=== PATIENT | female | born 1975 | race Caucasian/White ===

== ENCOUNTER 2018-07-31 21:36 | Emergency (ER) | payer BC ==
[~2018-07-31] VITALS: Ht 157.5 cm; Wt 81.8 kg
[~2018-07-31 21:36] MED LIST: NAPR-58 PO; OXYC-530 PO
[2018-07-31] MEDS ORDERED: METH2.5T6 PO (21:46)
[2018-08-01 01:25] LABS: BASOPHILS % (AUTO) 0.3 % (0.0-2.0); EOSINOPHILS % (AUTO) 1.6 % (1.0-6.0); HEMOGLOBIN 12.1 g/dL (12.0-16.0); LYMPHOCYTES # (AUTO) 1.5 K/uL (1.0-4.8); LYMPHOCYTES % (AUTO) 18.2 % (22.0-44.0); MEAN CORPUSCULAR HEMOGLOBIN 27.8 pg (26.0-34.0); MEAN CORPUSCULAR HGB CONC 33.7 G/dL (31.0-37.0); MEAN CORPUSCULAR VOLUME 83 fL (80-100); MONOCYTES # (AUTO) 0.5 K/uL (0.1-1.0); MONOCYTES % (AUTO) 6.1 % (2.0-9.0); NEUTROPHILS # (AUTO) 5.9 K/uL (1.8-7.7); NEUTROPHILS % (AUTO) 73.8 % (40.0-70.0); PLATELET COUNT (AUTO) 184 K/uL (150-450); RED BLOOD CELL COUNT(AUTO) 4.36 MIL/uL (4.00-5.20); RED CELL DISTRIBUTION WIDTH 13.4 % (11.5-14.5)
[2018-08-01 01:45] LABS: HCG,QUANTITATIVE < 1 mIU/mL (0-6)
[2018-08-01 01:55] LABS: LACTIC ACID 0.5 mmol/L (0.4-2.0)
[2018-08-01 02:15] VITALS: BP 125/90
== END 2018-08-01 02:21 | disposition home or self-care (01) ==
LOC: EMS 21:36
DX: L03.116 Cellulitis of left lower limb (principal); M66.0 Rupture of popliteal cyst; M19.90 Unspecified osteoarthritis, unspecified site
CPT/HCPCS: 83605; 93971